=== PATIENT | male | born 1975 | race Hispanic/Latino ===

== ENCOUNTER 2019-08-19 04:44 | Emergency (ER) | payer SELFPAY ==
[2019-08-19] MEDS ORDERED: FLUORESCEIN SODIUM 1 STRIP STRIP ONE (04:52)
[2019-08-19] MEDS ORDERED: TETRACAINE HCL 0.5% 4 ML OPHTH SOLN ONE (04:52)
[2019-08-19] MEDS ORDERED: NA BORATE/BORIC AC/H2O/NACL 120 ML OPHTH IRRIG SOLN ONE (05:13)
[2019-08-19] MEDS ORDERED: TOBRAMYCIN/DEXAMETHASONE OPTH SUSP 2.5 ML BOT ONE (05:14)
[2019-08-19] MEDS ORDERED: ERYTHROMYCIN BASE 0.5% OPHTH OINT 1 GM TUBE ONE (05:16)
== END 2019-08-19 05:31 | disposition home or self-care (01) ==
LOC: EDH 04:44
DX: T15.02XA Foreign body in cornea, left eye, initial encounter (principal); X58.XXXA Exposure to other specified factors, initial encounter; Y93.89 Activity, other specified; Y92.89 Other specified places as the place of occurrence of the external cause; Y99.8 Other external cause status